=== PATIENT | female | born 1975 ===

== ENCOUNTER 2021-10-28 16:45 | Observation (INO) | payer OTHER ==
--- NOTE | 2021-10-28 17:43 | ED ---
General Adult HPI - General Chief complaint: Dizziness Stated complaint: High BP,Dizziness Time Seen by Provider: 10/28/21 17:43 Source: patient Mode of arrival: ambulatory Limitations: no limitations - History of Present Illness Initial comments: Patient presents to the ED with her for evaluation. Patient states that she developed symptoms of fever, cough and body aches 4 days ago. Patient states that these symptoms have since resolved, but she states that she has had a headache and dizziness since yesterday, which is why she decided to come to the ED. Patient states that she has a known history of hypertension, and she states that she is supposed be taking medications for management of her high blood pressure, but she has not been doing so. Patient denies trauma or injury, sudden onset of headache, LOC, neck pain or stiffness, focal numbness/weakness/neuro deficit, visual changes, speech difficulty, chest pain or pressure, dyspnea, palpitations, syncope, abdominal pain, nausea/vomiting/diarrhea, bloody or melanotic stool, dysuria or urinary symptoms, or any other symptoms or complaints. Patient states that she is not vaccinated against Covid. - Related Data Home Medications Medication Instructions Recorded Confirmed No Known Home Medications 10/28/21 10/28/21 Allergies Allergy/AdvReac Type Severity Reaction Status Date / Time No Known Allergies Allergy Verified 10/28/21 18:31 Review of Systems ROS Statement: Those systems with pertinent positive or pertinent negative responses have been documented in the HPI. ROS Other: All systems not noted in ROS Statement are negative. Past Medical History Past Medical History: Hypertension History of Any Multi-Drug Resistant Organisms: None Reported Past Surgical History: No Surgical Hx Reported Past Psychological History: No Psychological Hx Reported Smoking Status: Never smoker Past Alcohol Use History: None Reported Past Drug Use History: None Reported General Exam Limitations: no limitations General appearance: alert, in no apparent distress Head exam: Present: atraumatic, normocephalic Eye exam: Present: normal appearance, PERRL, EOMI. Absent: nystagmus ENT exam: Present: normal oropharynx, mucous membranes moist, TM's normal bilaterally Neck exam: Present: other (Trachea is in midline). Absent: tenderness, meningismus Respiratory exam: Present: normal lung sounds bilaterally. Absent: respiratory distress, wheezes, rales, rhonchi, stridor Cardiovascular Exam: Present: regular rate, normal rhythm, normal heart sounds, other (Normal radial pulses bilaterally) GI/Abdominal exam: Present: soft. Absent: distended, tenderness, guarding Extremities exam: Absent: tenderness, pedal edema, calf tenderness Neurological exam: Present: alert, oriented X3, CN II-XII intact. Absent: motor sensory deficit Psychiatric exam: Present: normal affect, normal mood Skin exam: Present: warm, dry, intact, normal color Course Vital Signs 10/28/21 10/28/21 10/28/21 17:05 19:09 19:20 Temperature 99.5 F Pulse Rate 91 81 80 Respiratory 18 18 Rate Blood Pressure 220/130 220/123 192/105 O2 Sat by Pulse 98 98 Oximetry 10/28/21 10/28/21 10/28/21 19:50 21:00 21:30 Temperature Pulse Rate 78 80 88 Respiratory 16 16 Rate Blood Pressure 186/109 194/114 188/106 O2 Sat by Pulse Oximetry 10/28/21 10/28/21 10/28/21 21:45 22:15 22:35 Temperature Pulse Rate 82 84 89 Respiratory Rate Blood Pressure 182/92 162/95 171/103 O2 Sat by Pulse Oximetry - Reevaluation(s) Reevaluation #1: 10/28/21 21:23 Patient denies development of any new symptoms while in the ED. Patient's blood pressure remains elevated despite receiving IV labetalol (although somewhat improved). An order has been placed for IV hydralazine. Patient and are aware the patient's test results. He shouldn't is a candidate for IV monoclonal antibody therapy. I have discussed the risks and benefits of IV monoclonal therapy with the patient, and she wishes to proceed. Patient also agrees with hospital admission at this time. 10/28/21 21:26 Case, H&P, test results and ED management thus far were discussed with Dr. Rizo. He accepts hospital admission. He has no further recommendations at this time. 10/28/21 22:25 Patient's blood pressure has now improved to 162/95. EKG Findings - EKG Comments: EKG Findings:: Normal sinus rhythm, ventricular rate of 80 bpm, no ectopy, normal VA and QRS intervals, normal QT interval, no ST or T-wave abnormality, leftward axis Medical Decision Making - Medical Decision Making Will admit the patient to the hospital for hypertensive urgency given her elevated blood pressure and symptoms of headache and dizziness. Patient's blood pressure has improved with ED management. Patient was treated with IV monoclonal antibody therapy for her positive Covid test results despite hospital admission given her hospital admission is not related to her Covid diagnosis. Dr. Rizo has accepted hospital admission. - Lab Data Result diagrams: 10/28/21 19:43 10/28/21 19:43 Lab Results 10/28/21 10/28/21 10/28/21 Range/Units 19:43 19:43 19:43 WBC 4.4 (3.8-10.6) k/uL RBC 5.21 (3.80-5.40) m/uL Hgb 14.7 (11.4-16.0) gm/dL Hct 47.8 H (34.0-46.0) % MCV 91.8 (80.0-100.0) fL MCH 28.3 (25.0-35.0) pg MCHC 30.8 L (31.0-37.0) g/dL RDW 12.9 (11.5-15.5) % Plt Count 216 (150-450) k/uL MPV 9.2 Neutrophils % 59 % Lymphocytes % 27 % Monocytes % 9 % Eosinophils % 0 % Basophils % 2 % Neutrophils # 2.6 (1.3-7.7) k/uL Lymphocytes # 1.2 (1.0-4.8) k/uL Monocytes # 0.4 (0-1.0) k/uL Eosinophils # 0.0 (0-0.7) k/uL Basophils # 0.1 (0-0.2) k/uL Sodium 134 L (137-145) mmol/L Potassium 4.5 (3.5-5.1) mmol/L Chloride 101 (98-107) mmol/L Carbon Dioxide 25 (22-30) mmol/L Anion Gap 8 mmol/L BUN 11 (7-17) mg/dL Creatinine 0.80 (0.52-1.04) mg/dL Est GFR (CKD-EPI)AfAm >90 (>60 ml/min/1.73 sqM) Est GFR (CKD-EPI)NonAf 88 (>60 ml/min/1.73 sqM) Glucose 95 (74-99) mg/dL Calcium 8.7 (8.4-10.2) mg/dL Total Bilirubin 0.4 (0.2-1.3) mg/dL AST 31 (14-36) U/L ALT 15 (4-34) U/L Alkaline Phosphatase 74 (38-126) U/L Troponin I <0.012 (0.000-0.034) ng/mL Total Protein 7.8 (6.3-8.2) g/dL Albumin 4.3 (3.5-5.0) g/dL HCG, Qual Not Detected Coronavirus (PCR) (Not Detectd) Influenza Type A RNA (Not Detectd) Influenza Type B (PCR) (Not Detectd) 10/28/21 10/28/21 Range/Units 19:43 19:43 WBC (3.8-10.6) k/uL RBC (3.80-5.40) m/uL Hgb (11.4-16.0) gm/dL Hct (34.0-46.0) % MCV (80.0-100.0) fL MCH (25.0-35.0) pg MCHC (31.0-37.0) g/dL RDW (11.5-15.5) % Plt Count (150-450) k/uL MPV Neutrophils % % Lymphocytes % % Monocytes % % Eosinophils % % Basophils % % Neutrophils # (1.3-7.7) k/uL Lymphocytes # (1.0-4.8) k/uL Monocytes # (0-1.0) k/uL Eosinophils # (0-0.7) k/uL Basophils # (0-0.2) k/uL Sodium (137-145) mmol/L Potassium (3.5-5.1) mmol/L Chloride (98-107) mmol/L Carbon Dioxide (22-30) mmol/L Anion Gap mmol/L BUN (7-17) mg/dL Creatinine (0.52-1.04) mg/dL Est GFR (CKD-EPI)AfAm (>60 ml/min/1.73 sqM) Est GFR (CKD-EPI)NonAf (>60 ml/min/1.73 sqM) Glucose (74-99) mg/dL Calcium (8.4-10.2) mg/dL Total Bilirubin (0.2-1.3) mg/dL AST (14-36) U/L ALT (4-34) U/L Alkaline Phosphatase (38-126) U/L Troponin I (0.000-0.034) ng/mL Total Protein (6.3-8.2) g/dL Albumin (3.5-5.0) g/dL HCG, Qual Coronavirus (PCR) Detected A (Not Detectd) Influenza Type A RNA Not Detected (Not Detectd) Influenza Type B (PCR) Not Detected (Not Detectd) - Radiology Data Chest x-ray: Normal chest. Noncontrast head CT: Multiple foci of white matter hypodensity consistent with microvascular ischemia and multiple lacunar infarcts. No hemorrhage. No evidence of cortical infarct. Disposition Clinical Impression: Headache, Dizziness, Hypertensive urgency, COVID-19 Disposition: ADMITTED IP TO THIS HOSP Condition: Stable When asked, does pt state using other controlled substances?: No Time of Disposition: 21:32
[2021-10-28] MEDS ORDERED: LABETALOL SYRINGE 5 MG/ML IVP STA (17:50)
--- NOTE | 2021-10-28 18:23 | CT ---
EXAMINATION TYPE: CT brain wo con DATE OF EXAM: 10/28/2021 COMPARISON: None HISTORY: headache, dizziness, htn CT DLP: 1127.4 mGycm Automated exposure control for dose reduction was used. Ventricles of normal size. There is no mass effect or midline shift. No sign of intracranial hemorrha ge. There is 1 cm hypodensity right frontal lobe white matter. There is poorly marginated hypodensity in the posterior temporal lobe white matter on the right side. There is left posterior internal caps ule hypodensity. The calvarium is intact. Skull base is intact. There is normal aeration of the masto id sinuses. IMPRESSION: Multiple foci of white matter hypodensity consistent with microvascular ischemia and multiple lacunar infarcts. No hemorrhage. No evidence of cortical infarct.
--- NOTE | 2021-10-28 18:24 | XR ---
EXAMINATION TYPE: XR chest 1V portable DATE OF EXAM: 10/28/2021 COMPARISON: NONE HISTORY: Dizziness TECHNIQUE: Single view FINDINGS: Heart is normal. Lungs are clear. Diaphragm is normal. Bony thorax is intact. IMPRESSION: Normal chest.
[2021-10-28] MEDS ORDERED: hydrALAZINE HCL 20 MG/ML 1 ML VIAL IVP STA (19:25)
[2021-10-28 19:49] LABS: Basophils # (A) 0.1 k/uL (0-0.2); Basophils % (A) 2 %; Eosinophils % (A) 0 %; HCT 47.8 % (34.0-46.0); HGB 14.7 gm/dL (11.4-16.0); Lymphocytes # (A) 1.2 k/uL (1.0-4.8); Lymphocytes % (A) 27 %; MCH 28.3 pg (25.0-35.0); MCHC 30.8 g/dL (31.0-37.0); MCV 91.8 fL (80.0-100.0); Mean Platelet Volume 9.2; Monocytes # (A) 0.4 k/uL (0-1.0); Monocytes % (A) 9 %; Neutrophils # (A) 2.6 k/uL (1.3-7.7); Neutrophils % (A) 59 %; Platelet Count 216 k/uL (150-450); RBC 5.21 m/uL (3.80-5.40); RDW 12.9 % (11.5-15.5); WBC 4.4 k/uL (3.8-10.6)
[2021-10-28 19:58] LABS: ALT 15 U/L (4-34); AST 31 U/L (14-36); African American GFR (CKD) >90 (>60 ml/min/1.73 sqM); Albumin 4.3 g/dL (3.5-5.0); Alkaline Phosphatase 74 U/L (38-126); Anion Gap 8 mmol/L; Blood Urea Nitrogen 11 mg/dL (7-17); Calcium 8.7 mg/dL (8.4-10.2); Carbon Dioxide 25 mmol/L (22-30); Chloride 101 mmol/L (98-107); Glucose 95 mg/dL (74-99); Non-African American GFR(CKD) 88 (>60 ml/min/1.73 sqM); Potassium 4.5 mmol/L (3.5-5.1); Sodium 134 mmol/L (137-145); Total Bilirubin 0.4 mg/dL (0.2-1.3); Total Protein 7.8 g/dL (6.3-8.2)
[2021-10-28 20:21] LABS: HCG,Qualitative Serum Not Detected
[2021-10-28] MEDS ORDERED: MELATONIN 3 MG TABLET PO PRN (21:27)
[2021-10-28] MEDS ORDERED: NALOXONE 0.4 MG/ML 1 ML VIAL IV PRN (21:27)
[2021-10-28] MEDS ORDERED: ACETAMINOPHEN TAB 325 MG TAB PO PRN (21:27)
[2021-10-28] MEDS ORDERED: ALPRAZolam 0.25 MG TAB PO PRN (21:27)
[2021-10-28] MEDS ORDERED: ONDANSETRON 4 MG/2 ML VIAL IVP PRN (21:27)
[2021-10-28] MEDS ORDERED: cloNIDine HCL 0.1 MG TAB PO PRN (22:00)
[2021-10-28] MEDS ORDERED: BEBTELOVIMAB (EUA) 175 MG/2 ML VIAL IV ONE (22:45)
--- NOTE | 2021-10-29 00:07 | P.HPIM ---
History of Present Illness H&P Date: 10/28/21 Chief Complaint: headache and dizziness 46 year old female with no significant past medical history patient comes in complaining of headache and dizziness, denies any other focal neuro deficits, denies any falls or injuries. she also reports having no PCP and no OP care, but was told years ago that she has high blood pressure. she also reported that she was sick for few days, but now is improving and denies any other ongoing URI symptoms . but she did have some coughing for few days prior she otherwise denies any fever ,chills, abd pain , nausea , vomiting, or changes in bowel or urinary habits,. workup in the ED, showed blood work within normal limits. COVID test was positive patient to receive monoclonal antibodies in the ED CT brain no acute pathology , but showed white matter microvascular ischemia. with multiple old lacunar infarcts. Review of Systems 14 point system review performed and pertinent positives and negatives are as per hPI, otherwise unremarkable Past Medical History Past Medical History: Hypertension History of Any Multi-Drug Resistant Organisms: None Reported Past Surgical History: No Surgical Hx Reported Past Psychological History: No Psychological Hx Reported Smoking Status: Never smoker Past Alcohol Use History: None Reported Past Drug Use History: None Reported - Past Family History family Family Medical History: No Reported History Medications and Allergies Home Medications Medication Instructions Recorded Confirmed Type No Known Home Medications 10/28/21 10/28/21 History Allergies Allergy/AdvReac Type Severity Reaction Status Date / Time No Known Allergies Allergy Verified 10/28/21 18:31 Physical Exam Vitals: Vital Signs Temp Pulse Resp BP Pulse Ox 10/28/21 21:00 80 16 194/114 10/28/21 19:50 78 16 186/109 10/28/21 19:20 80 192/105 10/28/21 19:09 81 18 220/123 98 10/28/21 17:05 99.5 F 91 18 220/130 98 Intake and Output 10/28/21 10/28/21 10/28/21 06:59 14:59 22:59 Other: Weight 79.379 kg Constitutional: No acute distress, conversant, pleasant Eyes: Anicteric sclerae, moist conjunctiva, Pupils equal round reactive to light ENMT: NC/AT Oropharynx clear, no erythema, or exudates Neck: Supple, FROM, no masses, or JVD No carotid bruits No thyromegaly Lungs: Clear to auscultation Clear to percussion Normal respiratory effort, no accessory muscle use Cardiovascular: Heart regular in rate and rhythm, No murmurs, gallops, or rubs No peripheral edema Abdominal: Soft Nontender, no guarding, rebound or rigidity Abdomen moving with respiration Normoactive bowel sounds No hepatomegaly, No splenomegaly No palpable mass No abdominal wall hernia noted Skin: Normal temperature, tone, texture, turgor No induration No subcutaneous nodules No rash, lesions No ulcers Extremities: No digital cyanosis No clubbing Pedal pulses intact and symmetrical Radial pulses intact and symmetrical No calf tenderness Psychiatric: Alert and oriented to person, place and time Appropriate affect fair judgement Neuro Muscles Strength 5/5 in all 4 extremities Sensation to light touch grossly present throughout Cranial nerves II-XII grossly intact No focal sensory deficits Lymphatics: no palpable cervical or supraclavicular , or inguinal lymph nodes Results CBC & Chem 7: 10/28/21 19:43 10/28/21 19:43 Labs: Abnormal Lab Results - Last 24 Hours (Table) 10/28/21 10/28/21 10/28/21 Range/Units 19:43 19:43 19:43 Hct 47.8 H (34.0-46.0) % MCHC 30.8 L (31.0-37.0) g/dL Sodium 134 L (137-145) mmol/L Coronavirus (PCR) Detected A (Not Detectd) Assessment and Plan Assessment: hypertensive urgency no evidence of end organ damage PRN clonidine for Systolic BP > 180 initiate dula anthypertensive norvasc and hydrochlorothiazide. monitor vital signs neurochecks q2hr counseled regarding low salt diet, and daily exercise. evidence of white matter microvascular ischemia and lacunar infartcs possibly secondary to uncontrolled hypertension ASA check lipid panel check A1C check Echo full code SCDs for DVT prophylaxis anticipated length of stay < 2 midnights
[2021-10-29 00:29] VITALS: RESP 18
[2021-10-29 05:25] LABS: Basophils # (A) 0.1 k/uL (0-0.2); Basophils % (A) 3 %; Eosinophils % (A) 0 %; HCT 46.3 % (34.0-46.0); HGB 14.3 gm/dL (11.4-16.0); Lymphocytes # (A) 1.9 k/uL (1.0-4.8); Lymphocytes % (A) 51 %; MCH 28.5 pg (25.0-35.0); MCHC 30.9 g/dL (31.0-37.0); MCV 92.1 fL (80.0-100.0); Mean Platelet Volume 9.1; Monocytes # (A) 0.4 k/uL (0-1.0); Monocytes % (A) 12 %; Neutrophils # (A) 1.2 k/uL (1.3-7.7); Neutrophils % (A) 31 %; Platelet Count 225 k/uL (150-450); RBC 5.02 m/uL (3.80-5.40); WBC 3.8 k/uL (3.8-10.6)
[2021-10-29 05:42] LABS: ALT 14 U/L (4-34); AST 27 U/L (14-36); African American GFR (CKD) >90 (>60 ml/min/1.73 sqM); Albumin 3.9 g/dL (3.5-5.0); Albumin/Globulin Ratio 1.3; Alkaline Phosphatase 67 U/L (38-126); Anion Gap 6 mmol/L; Blood Urea Nitrogen 11 mg/dL (7-17); Calcium 8.7 mg/dL (8.4-10.2); Carbon Dioxide 27 mmol/L (22-30); Chloride 103 mmol/L (98-107); Globulin 3.1 g/dL; Glucose 98 mg/dL (74-99); Non-African American GFR(CKD) 88 (>60 ml/min/1.73 sqM); Sodium 136 mmol/L (137-145); Total Bilirubin 0.2 mg/dL (0.2-1.3)
[2021-10-29 08:32] VITALS: BP 149/95; PULSE 71; TEMP 97.9
[2021-10-29] MEDS ORDERED: hydroCHLOROthiazide 25 MG TAB PO SCH (09:00)
[2021-10-29] MEDS ORDERED: amLODIPine 5 MG TAB PO SCH (09:00)
[2021-10-29 09:16] LABS: Chol/HDL Ratio 2.81 Ratio; LDL Cholesterol,Calculated 61.9 mg/dL (0.0-131.0)
--- NOTE | 2021-10-29 10:40 | P.DS ---
Providers Date of admission: 10/28/21 21:27 Expected date of discharge: 10/29/21 Attending physician: Lorna Rizo MD Primary care physician: Stated None Hospital Course: 46-year-old female with no significant past medical history initially presented to the ED for headache and lightheadedness. She denied any focal neurologic deficits, falls or syncopal episodes. She reported being told many years ago about high blood pressure but does not take any medication nor has she followed up with anyone. In the ED, she was noted to have low-grade fever of 100.2 Fahrenheit and BP as high as 159/95. CBC showed no significant abnormalities. CMP showed sodium 134. Troponin was less than 0.012 with EKG showing no ST elevation. Lipid panel showed total cholesterol 150 with LDL of 61.9 and triglyceride of 174. A1c was within normal limits. COVID-[address] head showed multiple foci of white matter hypodensity consistent with microvascular ischemic changes and multiple lacunar infarcts. Chest x-ray was negative. She was given labetalol IV in the ED. She received Bebtelovimab for COVID-19. Patient was admitted under observation status for hypertensive urgency. She was started on hydrochlorothiazide and amlodipine by mouth. Repeat blood pressure was 149/95. She was seen and examined on 10/29/2021. She reported complete resolution of her symptoms. She denied any chest pain, shortness of breath, palpitations or lightheadedness. She was able to ambulate to the bathroom without any difficulties. She did not require any supplemental oxygen. She is advised to start amlodipine 5 mg by mouth daily along with hydrochlorothiazide 25 mg by mouth daily. She is advised to follow-up with her PCP within 1-2 days of discharge for continued workup of hypertension. She is advised to follow low-salt diet, regular exercise and to obtain a blood pressure cuff. With regard to COVID-19, she is asymptomatic. She is advised to contact and isolation precautions. Patient verbalized understanding of the plan. This complex discharge took about 45 minutes to complete. General: [non toxic], [no distress], [appears at stated age] Derm: [warm], [dry] Head: [atraumatic], [normocephalic], [symmetric] Eyes: [EOMI], [no lid lag], [anicteric sclera] Mouth: [no lip lesion], [mucus membranes moist] Cardiovascular: [S1S2 reg], [no murmur] Lungs: [CTA bilateral], [no rhonchi, no rales] , [no accessory muscle use] Abdominal: [soft], [ nontender to palpation], [no guarding], [no appreciable organomegaly] Ext: [no gross muscle atrophy], [no edema], [no contractures] Neuro: [no focal neuro deficits] Psych: [Alert], [oriented], [appropriate affect] Discharge diagnoses: #Hypertensive urgency #Lacunar infarcts seen on CT head #Asymptomatic COVID-19 #Morbid obesity #Dyslipidemia Pertinent Studies: Chest x-ray CT head Patient Condition at Discharge: Stable Plan - Discharge Summary New Discharge Prescriptions: New amLODIPine [Norvasc] 5 mg PO DAILY #30 tab hydroCHLOROthiazide [Hydrodiuril] 25 mg PO DAILY #30 tab Aspirin 81 mg PO DAILY #30 tab Discharge Medication List Aspirin 81 mg PO DAILY #30 tab 10/29/21 [Rx] amLODIPine [Norvasc] 5 mg PO DAILY #30 tab 10/29/21 [Rx] hydroCHLOROthiazide [Hydrodiuril] 25 mg PO DAILY #30 tab 10/29/21 [Rx] Follow up Appointment(s)/Referral(s): None,Stated [Primary Care Provider] - 1-2 days Juice Welch [STAFF PHYSICIAN] - 1-2 Days Activity/Diet/Wound Care/Special Instructions: Diet: Low salt Follow up with your PCP within 1-2 days of discharge. Take all medications as advised. Come back to the ED or call 911 for worsening chest pain, shortness of breath, palpitations, lightheadedness/dizziness. Please obtain a blood pressure cuff to measure your blood pressure at home. Take these results to your PCP. Discharge Disposition: HOME SELF-CARE
== END 2021-10-29 11:06 | disposition home or self-care (01) ==
LOC: EC 16:45 → 6NMEDSUR 21:27
PROVIDERS: ADMIT Internal Medicine; ATTEND Internal Medicine
DX: I16.0 Hypertensive urgency (principal); U07.1 COVID-19; E66.01 Morbid (severe) obesity due to excess calories; E78.5 Hyperlipidemia, unspecified; I10 Essential (primary) hypertension; R05.9 Cough, unspecified; R50.9 Fever, unspecified; Z78.9 Other specified health status; Z79.899 Other long term (current) drug therapy; Z68.32 Body mass index [BMI] 32.0-32.9, adult; Z71.3 Dietary counseling and surveillance; Z71.82 Exercise counseling; Z91.14 Patient's other noncompliance with medication regimen
CPT/HCPCS: 99285; 96374; 96375; 36415; 93005; 80061; 80053 ×2; 84484; 85025 ×2; 84703; 87502; 83036; 87635; 71045; 70450; G0378 ×2; M0222; J0360; Q0222